=== PATIENT | female | born 1985 | race Caucasian/White ===

== ENCOUNTER → 2016-09-26 | Outpatient (CLI) | payer OTHER ==
[~2016-09-26] MED LIST: NUVARING1 ICR; VICODIN 5/500 505 MG PO; ZOFRAN ODT4 MG SL
[2016-09-26 16:00] LABS: HEMATOCRIT 38.1 % (37.0-47.0); HEMOGLOBIN 12.8 g/dl (12.0-16.0); MEAN CELL VOLUME 88.2 fl (81.0-99.0); MEAN CORPUSCULAR HGB 29.6 pg (27.0-31.0); MEAN CORPUSCULAR HGB CONC 33.6 g/dl (33.0-37.0); MEAN PLATELET VOLUME 9.1 fl (9.6-12.3); RED BLOOD COUNT 4.32 10*6/uL (4.10-5.10); RED CELL DISTRI WIDTH 13.8 % (0-14.5); WHITE BLOOD COUNT 9.6 10*3/uL (4.8-10.8)
[2016-09-26 16:31] LABS: ALKALINE PHOSPHATASE 57 U/L (45-117); BILIRUBIN, TOTAL 0.3 mg/dl (0.2-1.0); BUN 10 mg/dl (7-24); CARBON DIOXIDE 26 mmol/L (21-32); CHLORIDE 104 mmol/L (98-107); CHOLESTEROL 103 mg/dL (<200); EST GLOM FILT AFRICAN AMERICAN > 60 ml/min; GLUCOSE 70 mg/dL (65-99); HDL CHOLESTEROL 45 mg/dl (40-60); LDL CHOLESTEROL 49 mg/dL (9-159); POTASSIUM 3.9 mmol/L (3.5-5.1); SGOT/AST 16 IU/L (3-35); SGPT/ALT 32 U/L (12-78); SODIUM 139 mmol/L (136-145); TOTAL PROTEIN 7.2 gm/dL (6.4-8.2); TRIGLYCERIDES 43 mg/dl (<150); VLDL CHOLESTEROL 9 mg/dL (6-40)
== END | disposition home or self-care (01) ==
LOC: LAB 15:42
PROVIDERS: Family Medicine
DX: E03.9 Hypothyroidism, unspecified (principal); E55.9 Vitamin D deficiency, unspecified

== ENCOUNTER → 2016-10-27 | Outpatient (CLI) | payer OTHER ==
[2016-10-27 13:01] LABS: FREE T4 1.18 ng/dl (0.76-1.46); THYROID STIM HORMONE (HS) 1.05 uIU/ml (0.358-4.75)
== END | disposition home or self-care (01) ==
LOC: LAB 12:07
PROVIDERS: Family Medicine
DX: O99.281 Endocrine, nutritional and metabolic diseases complicating pregnancy, first trimester (principal); E03.9 Hypothyroidism, unspecified; Z3A.08 8 weeks gestation of pregnancy

== ENCOUNTER → 2016-11-24 | Outpatient (CLI) | payer OTHER ==
[2016-11-24 13:48] LABS: FREE T4 1.23 ng/dl (0.76-1.46)
[2016-11-24 13:53] LABS: THYROID STIM HORMONE (HS) 0.927 uIU/ml (0.358-4.75)
== END | disposition home or self-care (01) ==
LOC: LAB 12:38
PROVIDERS: Family Medicine
DX: O99.280 Endocrine, nutritional and metabolic diseases complicating pregnancy, unspecified trimester (principal); Z3A.00 Weeks of gestation of pregnancy not specified

== ENCOUNTER → 2016-12-28 | Outpatient (CLI) | payer OTHER ==
[2016-12-28 12:14] LABS: FREE T4 1.09 ng/dl (0.76-1.46); THYROID STIM HORMONE (HS) 1.06 uIU/ml (0.358-4.75)
== END | disposition home or self-care (01) ==
LOC: LAB 11:16
PROVIDERS: Family Medicine
DX: E03.9 Hypothyroidism, unspecified (principal)

== ENCOUNTER → 2017-02-08 | Outpatient (CLI) | payer OTHER ==
[2017-02-08 13:04] LABS: FREE T4 0.93 ng/dl (0.76-1.46)
[2017-02-08 13:09] LABS: THYROID STIM HORMONE (HS) 1.14 uIU/ml (0.358-4.75)
== END ==
LOC: LAB 12:08
PROVIDERS: Family Medicine
DX: E03.9 Hypothyroidism, unspecified (principal)

== ENCOUNTER → 2019-06-14 | Outpatient (CLI) | payer OTHER ==
[2019-06-14 12:25] LABS: HEMATOCRIT 44.9 % (37.0-47.0); HEMOGLOBIN 14.4 g/dl (12.0-16.0); MEAN CELL VOLUME 89.3 fl (81.0-99.0); MEAN CORPUSCULAR HGB 28.6 pg (27.0-31.0); MEAN CORPUSCULAR HGB CONC 32.1 g/dl (33.0-37.0); MEAN PLATELET VOLUME 9.6 fl (9.6-12.3); RED BLOOD COUNT 5.03 10*6/uL (4.10-5.10); RED CELL DISTRI WIDTH 13.8 % (0-14.5); WHITE BLOOD COUNT 10.4 10*3/uL (4.8-10.8)
[2019-06-14 12:56] LABS: ALBUMIN 4.2 gm/dl (3.1-4.5); ALKALINE PHOSPHATASE 84 U/L (45-117); BUN 12 mg/dl (7-24); CHLORIDE 107 mmol/L (98-107); CHOLESTEROL 128 mg/dL (<200); CREATININE 0.78 mg/dL (0.55-1.02); FREE T4 1.21 ng/dl (0.76-1.46); HDL CHOLESTEROL 43 mg/dl (40-60); LDL CHOLESTEROL 72 mg/dL (9-159); POTASSIUM 3.9 mmol/L (3.5-5.1); SGOT/AST 12 IU/L (3-35); SGPT/ALT 22 U/L (12-78); SODIUM 139 mmol/L (136-145); TOTAL PROTEIN 7.8 gm/dL (6.4-8.2); TRIGLYCERIDES 66 mg/dl (<150); VLDL CHOLESTEROL 13 mg/dL (6-40)
[2019-06-14 13:01] LABS: THYROID STIM HORMONE (HS) 0.684 uIU/ml (0.358-4.75)
== END | disposition home or self-care (01) ==
LOC: LAB 12:05
PROVIDERS: Nurse Practitioner Family
DX: Z13.220 Encounter for screening for lipoid disorders (principal); E03.9 Hypothyroidism, unspecified; D64.9 Anemia, unspecified; E55.9 Vitamin D deficiency, unspecified; R53.83 Other fatigue